=== PATIENT | female | born 1970 | race Two or more races ===

== ENCOUNTER 2018-11-28 18:27 | Observation (INO) | payer BC ==
[2018-11-28] MEDS ORDERED: NS 1,000 ML IV ONE (18:36)
[2018-11-28] MEDS ORDERED: ONDANSETRON 4 MG/2 ML VIAL IVP ONE (18:36)
[2018-11-28] MEDS ORDERED: HYDROmorphONE/DILAUDID 2 MG/ML INJ IVP ONE (18:36)
--- NOTE | 2018-11-28 18:36 | EDPHY ---
H & P Time Seen by Provider: 11/28/18 18:33 HPI/ROS: HPI CHIEF COMPLAINT: Left shoulder pain status post snowboarding accident. HISTORY OF PRESENT ILLNESS: This patient 48-year-old female, presents emergency room by EMS from [facility]. She was skiing and was struck by another skier she fell forward ,landing on her left shoulder. No LOC. She Was wearing her helmet, her main complaint is left anterior shoulder discomfort. Currently has 8/10 pain. With any range of motion of her left shoulder gives her discomfort. Denies any other areas of pain. Denies chest pain or shortness of breath. Denies neck pain or headache, denies wrist or elbow pain. Pain is only located left anterior shoulder. With ROM it has worsening pain. She received intranasal fentanyl 100 mcg prior to arrival as well as a 100mcg nebulized fentanyl. However this was during a prolonged transport time. She arrives emergency room complaining of left anterior shoulder pain left lateral shoulder pain. Worse with range of motion. Current level pain 8/10. Past Medical History: Denies medical history Past Surgical History: Denies surgical history Social History: Denies drugs alcohol tobacco. at bedside. Visiting from [place]. Family History: Noncontributory ROS REVIEW OF SYSTEMS: 10 Systems were reviewed and negative with the exception of the elements mentioned in the history of present illness. Exam Constitutional triage nursing summary reviewed, vital signs reviewed, awake/ alert. Eyes normal conjunctivae and sclera, EOMI, PERRLA. HENT normal inspection, atraumatic, moist mucus membranes, no epistaxis, neck supple/ no meningismus, no raccoon eyes. Respiratory clear to auscultation bilaterally, normal breath sounds, no respiratory distress, no wheezing. Cardiovascular rate normal, regular rhythm, no murmur, no edema, distal pulses normal. Gastrointestinal soft, non-tender, no rebound, no guarding, normal bowel sounds, no distension, no pulsatile mass. Genitourinary no CVA tenderness. Musculoskeletal left arm: Tender palpation over the left lateral and anterior shoulder axillary nerve intact. Distally the left arm is neurovascular intact with good distal pulse, good cap refill, good vise hand strength. Minimal range of motion left shoulder due to pain. No evidence of obvious deformity. no midline vertebral tenderness, full range of motion, no calf swelling, no tenderness of extremities, no meningismus, good pulses, neurovascularly intact. Skin pink, warm, & dry, no rash, skin atraumatic. Neurologic awake, alert and oriented x 3, AAOx3, moves all 4 extremities equally, motor intact, sensory intact, CN II-XII intact, normal cerebellar, normal vision, normal speech. Psychiatric normal mood/affect. Heme/Lymph/Immune no lymphadenopathy. Differential Diagnosis: Includes but is not limited to in a particular order left shoulder contusion, left shoulder sprain, fracture, clavicle fracture, dislocation, rotator cuff injury Medical Decision Making: Plan for this patient x-ray left shoulder, x-ray two view, IV Dilaudid for pain control and re-evaluate. Re-evaluation: X-rays reviewed. X-rays are interpreted by myself. This shows a left comminuted humeral head fracture. Will have Orthopedics evaluate this x-ray. On exam she is right-hand dominant, this is her left shoulder. Her axillary nerve is intact sensation is intact. She does have 10/10 current left shoulder pain. She last ate at 8:30 a[address] I consult Dr. Funes at 7:03 p.m. He has reviewed the imaging. He requested a CT scan of the shoulder additionally would like her sling and swath. Pain control. IV Dilaudid as been ordered for pain control reassessed. She is neurovascular intact 2110: I did re-evaluate the patient she is neurovascular intact. Still complaining of rather severe left shoulder pain. I have ordered the patient IV Toradol. She has already received 200 mcg IV fentanyl by EMS 2 mg IV Dilaudid. She prefers to be admitted plan will be for admission overnight for pain control. I have consult Orthopedics Dr. Funes who would like Trauma Surgery to admit. Consult Trauma surgery Dr. Corrigan 2111. Dr. Corrigan to admit. Plan to admit to Dr. Corrigan comminuted left humeral fracture. Orthopedics has been consulted Source: Patient, EMS Constitutional: Initial Vital Signs Temperature (C) 36.9 C 11/28/18 18:27 Heart Rate 73 11/28/18 18:27 Respiratory Rate 16 11/28/18 18:27 Blood Pressure 143/71 H 11/28/18 18:27 O2 Sat (%) 93 11/28/18 18:27 O2 Delivery Mode Nasal Cannula O2 (L/minute) 2 Allergies/Adverse Reactions: No Known Allergies Allergy (Unverified 11/28/18 18:40) Home Medications: Medication Instructions Recorded oxyCODONE IR [Oxycodone Ir (*)] 5 - 10 mg PO Q4-6PRN PRN #40 tab 11/29/18 Medical Decision Making - Data Points Laboratory Results: Laboratory Results 11/28/18 19:14 11/28/18 19:14 Medications Given: Discontinued Medications Acetaminophen (Tylenol) 1,000 mg PO Q8H SAL Stop: 05/27/19 21:29 Last Admin: 11/29/18 05:24 Dose: 1,000 mg Hydromorphone HCl (Dilaudid) 1 mg IVP EDNOW ONE Stop: 11/28/18 18:37 Last Admin: 11/28/18 19:02 Dose: 1 mg Hydromorphone HCl (Dilaudid) 1 mg IVP EDNOW ONE Stop: 11/28/18 19:31 Last Admin: 11/28/18 19:41 Dose: 1 mg Sodium Chloride (Ns) 1,000 mls @ 0 mls/hr IV ONCE ONE PRN Reason: Wide Open Stop: 11/28/18 18:37 Last Admin: 11/28/18 19:02 Dose: 1,000 mls Lactated Ringer's (Lr) 1,000 mls @ 100 mls/hr IV CONT SAL Stop: 05/27/19 21:29 Last Admin: 11/28/18 23:29 Dose: 1,000 mls Ketorolac Tromethamine (Toradol) 15 mg IVP EDNOW ONE Stop: 11/28/18 21:01 Last Admin: 11/28/18 21:09 Dose: 15 mg Ketorolac Tromethamine (Toradol) 30 mg IVP Q6HRS PRN PRN Reason: Pain, Moderate Stop: 12/03/18 21:31 Last Admin: 11/29/18 02:21 Dose: 30 mg Ondansetron HCl (Zofran) 4 mg IVP EDNOW ONE Stop: 11/28/18 18:37 Last Admin: 11/28/18 19:04 Dose: 4 mg Departure - Departure Disposition: [facility] Clinical Impression: Shoulder fracture, left Qualifiers: Encounter type: initial encounter Fracture type: closed Qualified Code(s): S42.92XA - Fracture of left shoulder girdle, part unspecified, initial encounter for closed fracture Condition: Good
[2018-11-28] MEDS ORDERED: HYDROmorphONE/DILAUDID 1 MG/ML INJ ONE (19:20)
[2018-11-28] MEDS ORDERED: HYDROmorphONE/DILAUDID 1 MG/ML INJ IVP ONE (19:30)
[2018-11-28] MEDS ORDERED: KETOROLAC 15 MG/1 ML SDV IVP ONE (21:00)
[2018-11-28 21:04] LABS: PLATELET COUNT 262 10^3/uL (150-400)
[2018-11-28 21:07] LABS: INR 0.97 (0.83-1.16); PROTIME(PATIENT) 13.1 SEC (12.0-15.0)
[2018-11-28] MEDS ORDERED: ONDANSETRON 4 MG/2 ML VIAL IVP PRN (21:26)
[2018-11-28] MEDS ORDERED: LR 1,000 ML IV SCH (21:30)
[2018-11-28] MEDS ORDERED: KETOROLAC 30 MG/1 ML SDV IVP PRN (21:32)
[2018-11-28] MEDS ORDERED: HYDROmorphONE/DILAUDID 1 MG/ML INJ IVP PRN (21:32)
[2018-11-28] MEDS: ACETAMINOPHEN 500 MG TAB PO SCH (23:18)
--- NOTE | 2018-11-28 23:26 | GHP ---
DATE OF ADMISSION: 11/28/2018 ADMITTING DIAGNOSIS: Ski fall with comminuted fracture of left humeral head. HISTORY: The patient is a 48-year-old female of [place] descent who was skiing at [place]. She was struck from behind on a run by another skier. She fell on her left side injuring her shoulder. This occurred approximately at 4 p.m. She was wearing a helmet. There was no loss of consciousness. She was transported to [facility] and arrived approximately 2-1/2 hours later. Though she has had a cough productive of a yellow sputum, she has no recent upper respiratory tract infection or diarrhea. There is no history of travel outside the [place] or antibiotic use in the last 6 months. There is no history of inflammatory bowel disease. SOCIAL HISTORY: She does not smoke. She does not drink. ALLERGIES: She has no known drug allergies. MEDICATIONS: She does not take medications. PAST SURGICAL HISTORY: Her only surgery has been a tonsillectomy. PAST MEDICAL HISTORY: There is no history of rheumatic fever. No history of TB. She does say she has had hepatitis in the past but is unclear as to the type. I have suggested that she pursue evaluation for that. There is no history of transfusion. REVIEW OF SYSTEMS: She has had a mold exposure in the past. She wears lenses for visual correction. She has a dental crown. She is known to have gallstones. She has occasional esophagitis. Her last mammogram was in 2017. Last Pap smear was in 2017. There are no limits on her activities, and no history of steroid use. PHYSICAL EXAMINATION: VITAL SIGNS: Show blood pressure of 146/73; heart rate 90; saturation 96% on 2 L nasal cannula, it was 93 on room air. GENERAL: She is awake, alert, pleasant, and interactive. HEAD: Her skull is normocephalic and atraumatic. Pupils are equal, round, reactive to light and accommodation. Pupils are 3 mm. Facial muscles are intact. She has normal dental occlusion. There is no Kong sign or raccoon eyes. NECK: Nontender to palpation, rotation side to side, bringing chin to chest and bringing her ears toward either shoulder. NEUROLOGIC: She is oriented to person, place, and time. GCS is 15, though she does not wish to move her left shoulder. She is able to move the fingers of her left hand and right hand. She is able to move her lower extremities. There are no focal or lateralizing neurologic findings. She is able to do serial 7's and recite her mother's telephone number backwards. LYMPHATIC: There is no cervical, supraclavicular, axillary, or inguinal lymphadenopathy. Note, I did not examine the left axilla due to the fracture.. On CAT scan, there is a prominent left axillary node. I have suggested that she follow up with the node evaluation. CARDIAC: Shows S1, S2 to be normal. Normal split of S2. CHEST: Stable to AP and lateral compression. ABDOMEN: Generous but soft. There are normoactive bowel sounds. It is not tender. PELVIS: Stable to AP and lateral compression. UPPER EXTREMITIES: Left arm in sling. Right arm - unremarkable. LOWER EXTREMITIES: Show a contusion on the right lower leg, which she states is old. Full range of motion, and no other abnormalities appreciated. DATA: White count is 10.8, hematocrit 39, platelet count is 266. INR is 0.97, potassium is 3.7. A CAT scan shows a comminuted, displaced left humeral head fracture. There is a suspicion of a scapular fracture on the plain films that was not borne out on the CAT scan. She does have a prominent node in the left axilla. Recommendation for followup within next 3-6 months. PLAN: Patient will be admitted for pain control. Dr. Mic Funes of Orthopedics will see her tomorrow morning to discuss surgical intervention. They do have a flight to [place] at approximately 1 p.m. tomorrow afternoon. I have suggested for followup that she complete the evaluation for hepatitis, that she follow up with both a breast mammogram and Pap smear, that she re- evaluate the left axillary node in 3-6 months, that she consider doing something about her gallstone, and that she consider esophageal evaluation given her [place] heritage with the known risk in that region of esophageal cancer. She understands these recommendations. /[id number]/MODL MTDD
[2018-11-29] MEDS: ACETAMINOPHEN 500 MG TAB PO SCH (05:24)
[2018-11-29 06:11] LABS: PLATELET COUNT 220 10^3/uL (150-400)
--- NOTE | 2018-11-29 07:17 | SOAPPROG ---
BELLE Progress Note Assessment/Plan: Assessment: left prox humerus fx Plan: sling and swathe patient would like to go home for surgical repair. I have encourage this as she will require her support network if she can tolerate the pain,, she may be d/c home full consult to follow 11/29/18 07:16 Objective: Vital Signs Temp Pulse Resp BP Pulse Ox 36.4 C 71 16 115/55 L 96 11/29/18 04:50 11/29/18 04:50 11/29/18 04:50 11/29/18 04:50 11/29/18 04:50 Laboratory Results 11/29/18 06:06 11/29/18 06:06 11/28/18 11/29/18 11/30/18 05:59 05:59 05:59 Intake Total 1569 Balance 1569 PT 13.1 SEC (12.0-15.0) 11/28/18 19:14 INR 0.97 (0.83-1.16) 11/28/18 19:14 ICD10 Worksheet Patient Problems: Problems Problem Status Onset Shoulder fracture, left Acute
[2018-11-29 07:40] VITALS: BP 111/63
--- NOTE | 2018-11-29 08:23 | SOAPPROG ---
BELLE Progress Note Assessment/Plan: Assessment: TERTIARY EXAM CO LOTS OF LEFT SHOULDER PAIN WITH SUBCAPITAL FX/ IN SLING/ WILL EVENTUALLY NEED SURGERY NO NEW COMPLAINTS/ NO LOC HEENT PERRLA, NO SIGNS OF TRAUMA ALERT, ORIENTED COOPERATIVE CHEST CLEAR AND SYMMETRIC WITH NO RIB OR STERNAL PAIN ABD SOFT, NONTENDER EXTREM OK EXCEPT LEFT SHOULDER AND HUMERUS, FULL PULSES AND SENSATION NEURO PHYSIOLOGIC PSYCH ALERT, ORIENTED, COOPERATIVE Plan:POSSIBLY HOME TODAY IF PT CLEARS 11/29/18 08:17 Objective: Vital Signs Temp Pulse Resp BP Pulse Ox 36.4 C 70 16 111/63 95 11/29/18 07:37 11/29/18 07:37 11/29/18 07:37 11/29/18 07:37 11/29/18 07:37 Laboratory Results 11/29/18 06:06 11/29/18 06:06 11/28/18 11/29/18 11/30/18 05:59 05:59 05:59 Intake Total 1569 Balance 1569 PT 13.1 SEC (12.0-15.0) 11/28/18 19:14 INR 0.97 (0.83-1.16) 11/28/18 19:14 ICD10 Worksheet Patient Problems: Problems Problem Status Onset Shoulder fracture, left Acute
--- NOTE | 2018-11-29 08:29 | SOAPPROG ---
BELLE Progress Note Assessment/Plan: Assessment: 48 y/o F s/p ski fall L proximal humerus fx: Pt will need surgery, but is from [place]. She would like to catch a plane back there today if possible. Ok per ortho, as long as she can ambulate adequately prior to discharge. PT/OT. D/c later today. S: Pain in L shoulder. Otherwise, denies new abdominal, chest, head pain. O: Alert Afebrile VSS Normocephalic, atraumatic, pupils equal and round RRR ctab, no increased WOB Abdomen: soft, nontender, nondistended, normoactive BS LUE: arm remains in sling. No numbness/tingling in fingers Neuro: CN 2-12 grossly intact 11/29/18 08:17 Objective: Vital Signs Temp Pulse Resp BP Pulse Ox 36.4 C 70 16 111/63 95 11/29/18 07:37 11/29/18 07:37 11/29/18 07:37 11/29/18 07:37 11/29/18 07:37 Laboratory Results 11/29/18 06:06 11/29/18 06:06 11/28/18 11/29/18 11/30/18 05:59 05:59 05:59 Intake Total 1569 Balance 1569 PT 13.1 SEC (12.0-15.0) 11/28/18 19:14 INR 0.97 (0.83-1.16) 11/28/18 19:14 ICD10 Worksheet Patient Problems: Problems Problem Status Onset Shoulder fracture, left Acute
--- NOTE | 2018-11-30 09:54 | GCON ---
INPATIENT CONSULTATION DATE OF CONSULTATION: 11/28/2018 CHIEF COMPLAINT: Left shoulder pain. 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 She was brought to the emergency department by ambulance after being struck by another skier . She pitched forward and landed across her left shoulder. She was wearing a helmet. She did not g et knocked out. She has no neck or back complaints. She has strict pain to her left shoulder. She was evaluated locally, with x-rays demonstrating a proximal humerus fracture. She was placed in a sl ing and sent by ambulance to [facility] for further evaluation and pain management. She was admitted secondary to intractable pain to her left shoulder. Currently, she has pain across her left shoulder. No other focal pain and/or complaints. Denies any neck or back complaints. No p revious history of left shoulder discomfort or injury. PAST MEDICAL HISTORY: Denies. PAST SURGICAL HISTORY: Denies. MEDICATIONS: Denies. ALLERGIES: No known drug allergies. SOCIAL HISTORY: No drugs, tobacco, or alcohol. She is visiting from [place]. REVIEW OF SYSTEMS: Negative for chest pain, shortness of breath, belly pain, back pain, numbness, ti ngling, or other joint-related complaints. OBJECTIVE: GENERAL: This is a healthy woman who is pleasant and cooperative with examination. HEEN T: Normocephalic, atraumatic. MUSCULOSKELETAL: Left upper extremity is in a sling. Limited examin ation is performed secondary to subjective pain. She has intact axillary, radial, ulnar, and median nerve sensation. There is no tenderness or crepitus about the elbow. No tenderness over the medial or lateral epicondyles or posterior olecranon. No tenderness through the forearm, wrist, and digits. She has intact digital flexion-extension of each digit independently and demonstrates less than 10- degree arc of motion with pendulum motion at the left shoulder. Right upper extremity is unremarkabl e. Bilateral lower extremities are unremarkable. IMAGING: Radiographs of her shoulder demonstrate a 4-part proximal humerus fracture with impaction o f the articular head. The shoulder is located. The greater and lesser tuberosities are also displac ed. This is confirmed by CT scan evaluation. The articular surface is intact. The surgical neck fr acture extends into the glenoid fossa. IMPRESSION: Left proximal humerus fracture, displaced. TREATMENT PLAN: I spent a lengthy amount of time, greater than 30 minutes, in discussion. I have re layed that this is clearly an operative fracture. I would proceed with operative intervention for op en reduction, internal fixation. I have outlined the surgical procedure, risks, benefits, alternativ es, and subsequent rehabilitation. She is planning on leaving for [place] this afternoon. I feel that she is probably best served by having surgical intervention close to her home support network a s this will require prolonged convalescence. She will be sent with all of her imaging. She is to us e the sling, and she will be swathed for comfort during transit, ice and elevation. She may call for any focal question. Seek attention for increasing numbness, tingling, pain. /[id number]/MODL
== END 2018-11-29 11:21 | disposition home or self-care (01) ==
LOC: F3N 22:30
PROVIDERS: ADMIT Surgery; ATTEND Surgery
DX: S42.252A Displaced fracture of greater tuberosity of left humerus, initial encounter for closed fracture (principal); S42.102A Fracture of unspecified part of scapula, left shoulder, initial encounter for closed fracture; V00.328A Other snow-ski accident, initial encounter; Y93.23 Activity, snow (alpine) (downhill) skiing, snowboarding, sledding, tobogganing and snow tubing; Y92.838 Other recreation area as the place of occurrence of the external cause
CPT/HCPCS: 71046; 73030; 73200; 92523; 97110; 97161; 97166; 97530; G0378; 96374; A4565; J1170; J1885; J2405